=== PATIENT | male | born 1990 | race Caucasian/White ===

== ENCOUNTER 2018-11-27 13:10 | Emergency (ER) | payer BC ==
[~2018-11-27] VITALS: Ht 165.1 cm; Wt 73.5 kg
[2018-11-27 13:20] VITALS: Ht 165.1 cm; Wt 73.5 kg
[2018-11-27 14:33] VITALS: BP 135/87
== END 2018-11-27 14:33 | disposition home or self-care (01) ==
LOC: ED 13:10
DX: J06.9 Acute upper respiratory infection, unspecified (principal); J01.90 Acute sinusitis, unspecified